=== PATIENT | female | born 1955 | race Caucasian/White ===

== ENCOUNTER 2016-10-21 07:29 | Inpatient (IN) | payer OTHER ==
[~2016-10-21] VITALS: Ht 167.6 cm; Wt 95.5 kg
--- NOTE | 2016-10-21 07:53 | EMERGENCY ROOM VISIT NOTE ---
History Report prepared by Romain: Codi Mcfarland Under the Supervision of: Dr. Tram Gipson M.D. First contact with patient: 07:37 Chief Complaint: STROKE SYMPTOMS Stated Complaint: STROKE SX HX: STROKES History of Present Illness The patient is a 61 year old female who presents to the Emergency Room with complaints of an episode of stroke-like symptoms beginning [employer]ACHINE [employer]. The patient states that she fell asleep around midnight last night while reading a book. She woke up at 6:15am and got up to go to the bathroom. She states that when she was walking to the bathroom her balance was "off." She was weaker on her left side. Her states that she was walking as if she were drunk. He also notes that she had very slurred speech, which has improved since arriving in the ED. The patient sat down on the toilet and reports that while she was sitting there, she had involuntary convulsions of the left arm and leg. These convulsions have resolved. She came to the ED for further evaluation. The patient is complaining of a headache that she rates as a 1/10 in severity. She started doxycycline two weeks ago for Lyme disease. She denies any other recent illness. The patient has had a previous stroke in 2002. She was on control at that time, and she no longer takes that medication. She is currently on Plavix. Source of History: patient, spouse/significant other Onset: PUNCH MACHINE OPERATOR Position: other (global) Symptom Intensity: 1/10 Quality: other (stroke-like symptoms) Timing: other (episode) Associated Symptoms: + headache Note: Pt was off balance and had slurred speech. Review of Systems See HPI for pertinent positives & negatives. A total of 10 systems reviewed and were otherwise negative. Past Medical & Surgical Medical Problems: (1) History of stroke Family History Cancer Social History Smoking Status: Never Smoker Marital Status: Housing Status: lives with significant other Current/Historical Medications Scheduled Aspirin (Aspirin), 325 MG PO DAILY Atorvastatin (Atorvastatin Calcium), 40 MG PO QAM Clopidogrel (Plavix), 75 MG PO DAILY Desvenlafaxine Succinate Er (Pristiq), 50 MG PO DAILY Doxycycline Hyclate (Doxycycline Hyclate), 100 MG PO BID Allergies Coded Allergies: No Known Allergies (Unverified , 10/21/16) Physical Exam Vital Signs Date Time Temp Pulse Resp B/P (MAP) Pulse Ox O2 Delivery O2 Flow Rate FiO2 10/21/16 11:50 95 Room Air 10/21/16 11:30 83 16 145/90 95 10/21/16 10:13 67 15 157/96 96 10/21/16 09:22 72 16 162/94 94 Room Air 10/21/16 08:26 62 10/21/16 08:16 99 Room Air 10/21/16 07:32 36.4 87 20 175/87 97 Room Air Physical Exam Vital signs reviewed. General: Well-appearing 61 year old female, in no significant distress. HEENT: No scleral icterus, PERRLA, neck supple. Atraumatic. Cardiovascular: Regular rate and rhythm, no extra sounds. Pulmonary: Clear to auscultation bilaterally, normal work of breathing. Abdomen: Soft, nontender, nondistended, positive bowel sounds. Musculoskeletal: Atraumatic, no peripheral edema. Neurologic: Patient awake alert and oriented x 3, full strength in all 4 extremities. Cranial nerves 2 through 12 grossly intact. No drift, finger to nose intact, heel to acevedo intact. Equal strength. Some dysarthria with more complicated sentences. Skin: Warm, dry, no rash Medical Decision & Procedures ER Provider Diagnostic Interpretation: Radiology results as stated below per my review and radiologist interpretation: HEAD WITHOUT CONTRAST (CT) CT DOSE: 537.48 mGy.cm HISTORY: Mental status change Stroke TECHNIQUE: Multiaxial CT images of the head were performed without the use of intravenous contrast. A dose lowering technique was utilized adhering to the principles of ALARA. Comparison: None. Findings: The paranasal sinuses and mastoid air cells are clear. Moderate frontal atrophy. Old left temporal infarct. Small old left parietal cortical infarct. No acute intracranial hemorrhage. No midline shift. Impression: Several old left cerebral infarct. Frontal atrophy. No acute intracranial abnormality. The above report was generated using voice recognition software. It may contain grammatical, syntax or spelling errors. Electronically signed by: Max Cooper M.D. 10/21/2016 8:16 AM Dictated Date/Time: 10/21/2016 8:14 AM CHEST ONE VIEW PORTABLE CLINICAL HISTORY: Stroke mental status change COMPARISON STUDY: No previous studies for comparison. FINDINGS: The bones soft tissues and hemidiaphragms are normal. The cardiomediastinal silhouette is normal. The lungs are clear. The pulmonary vasculature is normal. IMPRESSION: Negative chest. The above report was generated using voice recognition software. It may contain grammatical, syntax or spelling errors. Electronically signed by: Max Cooper M.D. 10/21/2016 10:38 AM Dictated Date/Time: 10/21/2016 10:[address] ANGIOGRAM OF THE NECK CLINICAL HISTORY: Stroke. COMPARISON STUDY: No priors. TECHNIQUE: Following the IV administration of 120 of Optiray 320, CT angiogram of the neck was performed from the aortic arch to the skull base. Images are reviewed in the axial, sagittal, and coronal planes. 3-D MIPS images are created and assessed. IV contrast was administered without complication. All measurements were calculated based on NASCET criteria. A dose lowering technique was utilized adhering to the principles of ALARA. CT DOSE: 628.47 mGy.cm FINDINGS: Thoracic aorta: Visualized portions of the thoracic aorta are normal in caliber. The aortic arch demonstrates 4-vessel variant anatomy. Subclavian arteries: Widely patent bilaterally. Right carotid arterial system: The right common carotid artery is widely patent, as are the right internal and external carotid arteries. Left carotid arterial system: The left common carotid artery is widely patent, as are the left internal and external carotid arteries. The mid to distal left internal carotid artery demonstrates a beaded appearance suggesting fibromuscular dysplasia. This is best seen on coronal MIP image #23. The distal left internal carotid artery is tortuous. Vertebral arteries: The vertebral arteries are widely patent bilaterally. The right vertebral artery is dominant. Intracranial vasculature: The internal carotid arteries and vertebral arteries at the skull base are widely patent. See report of CT angiogram of the brain performed concurrently for detailed intracranial findings. Jugular veins: Widely patent bilaterally. Brain parenchyma: Encephalomalacia from a remote left MCA territory infarct is partially visualized. Lung apices: Partially visualized upper lobe lung parenchyma appears clear. Soft tissues: The visualized pharyngeal soft tissues are normal in appearance noting angiographic phase technique. The oropharyngeal airway appears widely patent. The salivary and thyroid glands are normal in appearance. No cervical lymphadenopathy is seen. Skeletal structures: Skeletal structures are osteopenic. The visualized calvarium at the skull base and the cervical spine appear intact. Mild cervical spondylosis is observed. The visualized paranasal sinuses and mastoid air cells are clear. IMPRESSION: 1. The carotid arteries intervertebral arteries are widely patent. 2. There is a beaded appearance of the mid to distal left internal carotid artery typical in appearance for fibromuscular dysplasia. Electronically signed by: Long Shields M.D. 10/21/2016 10:08 AM Dictated Date/Time: 10/21/2016 9:56 AM HEAD ANGIO WITH CONTRAST CLINICAL HISTORY: Change in mental status syncope TECHNIQUE: Transaxial acquisition with multi axial reformatted images COMPARISON STUDY: None FINDINGS: Mild atherosclerotic change throughout the anterior middle and posterior cerebral circulation. High degree of stenotic change is not seen. No evidence for aneurysmal distention. IMPRESSION: 1. Mild scattered atherosclerotic change and multifocal narrowing of all structures of the anterior middle and posterior cerebral circulation. 2. No evidence for a significant or severe stenotic process. The above report was generated using voice recognition software. It may contain grammatical, syntax or spelling errors. Electronically signed by: Max Cooper M.D. 10/21/2016 10:02 AM Dictated Date/Time: 10/21/2016 9:53 AM Laboratory Results Test 10/21/16 07:41 10/21/16 07:44 10/21/16 07:55 10/21/16 07:56 Bedside Prothrombin Time INR 1.0 (0.9-1.1) Bedside Glucose 97 mg/dl (70-90) Erythrocyte Sedimentation Rate 6 mm/hr (0-21) Prothrombin Time 10.0 SECONDS (9.0-12.0) Prothromb Time International Ratio 0.9 (0.9-1.1) Activated Partial Thromboplast Time 27.4 SECONDS (21.0-31.0) Partial Thromboplastin Ratio 1.1 Estimated Average Glucose 111 mg/dl Hemoglobin A1c 5.5 % (4.5-5.6) C-Reactive Protein < 0.29 mg/dl (0-0.29) Hepatitis C Antibody Screen NEG (NEG) Bedside Hemoglobin 14.6 g/dl (12.0-16.0) Bedside Hematocrit 43 % (37-47) Bedside Sodium 141 mEq/L (135-144) Bedside Potassium 4.1 mEq/L (3.3-5.0) Bedside Chloride 104 mEq/L (101-112) Bedside Total CO2 26 mEq/l (24-31) Bedside Blood Urea Nitrogen 24 mg/dl (7-18) Bedside Creatinine 0.8 mg/dl (0.6-1.3) Bedside Glucose (other) 111 mg/dl (70-99) Bedside Ionized Calcium (Rob) 1.14 mmol/l (1.12-1.32) Laboratory results per my review. Medications Administered Medications (Trade) Dose Ordered Sig/Jamie Route Start Time Stop Time Status Last Admin Dose Admin Sodium Chloride 1,000 ml @ 100 mls/hr Q10H IV 10/21/16 07:39 10/21/16 13:03 DC 10/21/16 12:54 100 MLS/HR Ondansetron HCl (Zofran Inj) 4 mg NOW STAT IV 10/21/16 08:41 10/21/16 08:42 DC 10/21/16 08:47 4 MG Meclizine HCl (Antivert Tab) 25 mg NOW STAT PO 10/21/16 08:44 10/21/16 08:45 DC 10/21/16 10:12 25 MG Promethazine HCl 12.5 mg/Sodium Chloride 50.5 ml @ 204 mls/hr NOW STAT IV 10/21/16 08:57 10/21/16 09:11 DC 10/21/16 09:20 204 MLS/HR ECG Indication: weakness Rate (beats per minute): 61 Rhythm: normal sinus Findings: no acute ischemic change, no ectopy ED Course 0737: Past medical records reviewed. The patient was evaluated in room A3. A complete history and physical examination was performed. 0739: NSS 1000 ml @ 100 mls/hr IV 0840: The nursing staff called to alert me that the patient is nauseated and vomited. 0841: Zofran 4 mg IV 0843: I reassessed the patient. She is still nauseated and complaining of dizziness that worsens when she closes her eyes. 0844: Antivert Tab 25 mg PO 0850: A stroke-alert was called in the ED. 0856: I spoke with Dr. Neri of [place] [facility]. We discussed the patient 's case and she will evaluate the patient via Tele-stroke. 0857: Promethazine HCl 12.5 mg/Sodium Chloride 50.5 ml @ 204 mls/hr IV 0921: I discussed the case with Dr. Neri again and she recommended a CTA head and neck. 1105: Once again I spoke with Dr. Neri regarding the patient's results and treatment plan. She recommended that the patient remain in the hospital for further management. She does not need to be transferred. 1109: I reassessed the patient at this time. She is feeling better and resting comfortably. I discussed the results and treatment plan with the patient and her . I answered all pertaining questions that they had. They expressed understanding and verbalized agreement. 1114: I spoke with Dr. Angela. We discussed the patient's results and treatment plan. The patient will be evaluated by the [facility] for further management. Medical Decision Differential diagnosis: Etiologies such as metabolic, infection, hypo/hyperglycemia, electrolyte abnormalities, cardiac sources, intracerebral event, toxicologic, neurologic, as well as others were entertained. This patient was evaluated and appeared to be in no significant distress. IV access was obtained and laboratory work was drawn. Patient was placed on radiation monitor and found to be in a normal sinus rhythm. EKG reveals no evidence of acute ischemia. Physical exam is fairly unrevealing with the exception of some mild dysarthria. CT scan of the head reveals evidence of old infarct. A stroke consult was placed, Dr. Salcido of neurology evaluated the patient. She has recommended a CT angiogram of head and neck. This study is read as above, vascular abnormalities identified without acute occlusive disease. I did speak with Dr. Salcido once again. She has recommended medical management. She has recommended follow-up MRA for confirmation of the fibromuscular disease noted on CTA. The hospitalist service was contacted. They will evaluate the patient for further management. She is aware of the plan and agrees. Medication Reconcilliation Current Medication List: was personally reviewed by me Blood Pressure Screening Patient's blood pressure: Elevated blood pressure Blood pressure disposition: Elevated BP felt to be situational Consults Time Called: 0854 Consulting Physician: Dr. Neri Returned Call: [address] Neri of [place] [facility]. We discussed the patient's case and she will evaluate the patient via Tele-stroke. Additional Consults: Time Called: 918 Consulted Physician: Dr. Neri Returned Call: 09 Additional Comments: I discussed the case with Dr. Neri again and she recommended a CTA head and neck. Time Called: 110 Consulted Physician: Dr. Neri Returned Call: [phone] Additional Comments: Once again I spoke with Dr. Neri regarding the patient's results and treatment plan. She recommended that the patient remain in the hospital for further management. She does not need to be transferred. Impression Primary Impression: Stroke Scribe Attestation The scribe's documentation has been prepared under my direction and personally reviewed by me in its entirety. I confirm that the note above accurately reflects all work, treatment, procedures, and medical decision making performed by me. Departure Information Dispostion Being Evaluated By Hospitalist Prescriptions Atorvastatin (Atorvastatin Calcium) 40 Mg Tab 40 MG PO QAM, #30 TAB 2 Refills Prov: Kleber Joshi MD 10/23/16 Referrals Sumeet Echevarria M.D. (PCP) Patient Instructions My [facility] [address] Stroke History Time Last Known Well midnight last night Stroke t-PA Criteria Reviewed Does NOT meet criteria for t-PA Reason t-PA Not Given Treatment not indicated Problem Qualifiers Primary Impression: Stroke CVA mechanism: unspecified Qualified Codes: I63.9 - Cerebral infarction, unspecified
[2016-10-21 08:08] LABS: BASO % 0.4 %; BASO ABS # 0.03 K/uL (0-0.2); COMPLETE YES; EOS % 3.3 %; HEMATOCRIT 43.5 % (37-47); IG% 0.1 %; LYMPH % 28.7 %; LYMPH ABS # 2.38 K/uL (1.2-3.4); MEAN CELL VOLUME 95.4 fL (80-100); MEAN CORPUSCULAR HEMOGLOBIN 32.7 pg (25-34); MEAN CORPUSCULAR HGB CONC 34.3 g/dl (32-36); MEAN PLATELET VOLUME 9.4 fL (7.4-10.4); MONO % 6.3 %; NEUT % 61.2 %; PLATELET COUNT 266 K/uL (130-400); RED BLOOD COUNT 4.56 M/uL (4.2-5.4)
[2016-10-21 08:10] LABS: ISTAT CREATININE 0.8 mg/dl (0.6-1.3); ISTAT HEMOGLOBIN 14.6 g/dl (12.0-16.0); ISTAT IONIZED CALCIUM 1.14 mmol/l (1.12-1.32)
[2016-10-21] MEDS: SODIUM CHLORIDE 0.9% 1000ML 1,000 ML IV SCH ×2 (08:15→12:54)
[2016-10-21 08:16] LABS: INR 0.9 (0.9-1.1); PARTIAL THROMBOPLASTIN RATIO 1.1
--- NOTE | 2016-10-21 08:18 | DIAGNOSTIC IMAGING REPORT ---
HEAD WITHOUT CONTRAST (CT) CT DOSE: 537.48 mGy.cm HISTORY: Mental status change Stroke TECHNIQUE: Multiaxial CT images of the head were performed without the use of intravenous contrast. A dose lowering technique was utilized adhering to the principles of ALARA. Comparison: None. Findings: The paranasal sinuses and mastoid air cells are clear. Moderate frontal atrophy. Old left temporal infarct. Small old left parietal cortical infarct. No acute intracranial hemorrhage. No midline shift. Impression: Several old left cerebral infarct. Frontal atrophy. No acute intracranial abnormality. The above report was generated using voice recognition software. It may contain grammatical, syntax or spelling errors. Electronically signed by: Max Cooper M.D. 10/21/2016 8:16 AM Dictated Date/Time: 10/21/2016 8:14 AM
[2016-10-21 08:25] LABS: BLOOD UREA NITROGEN 24 mg/dl (7-18); BUN/CREATININE RATIO 29.9 (10-20); CALCIUM 8.8 mg/dl (8.5-10.1); CARBON DIOXIDE 30 mmol/L (21-32); CHLORIDE 109 mmol/L (98-107); CREATININE 0.81 mg/dl (0.60-1.20); GLUCOSE 112 mg/dl (70-99); POTASSIUM 4.1 mmol/L (3.5-5.1); SODIUM 142 mmol/L (136-145)
[2016-10-21 08:30] LABS: CKMB/CK RATIO 8.2 (0-3.0)
[2016-10-21] MEDS ORDERED: ONDANSETRON INJ 2 MG/ML 2 ML VIAL IV STA (08:41)
[2016-10-21] MEDS ORDERED: MECLIZINE HCL 25 MG TAB PO STA (08:44)
[2016-10-21] MEDS ORDERED: PROMETHAZINE HCL INJ 12.5 MG in SODIUM CHLORIDE 0.9% 50ML 50 ML IV STA (08:57)
[2016-10-21] MEDS ORDERED: OPTIRAY 320 IV PRN (09:30)
[2016-10-21] MEDS ORDERED: CLOP1TAB15 PO (09:50)
[2016-10-21] MEDS ORDERED: SIMV10TA2 PO (09:50)
[2016-10-21] MEDS ORDERED: ASPI325T45 PO (09:50)
[2016-10-21] MEDS ORDERED: DXY/100 PO (09:50)
[2016-10-21] MEDS ORDERED: DESV50TA PO (09:50)
--- NOTE | 2016-10-21 10:03 | DIAGNOSTIC IMAGING REPORT ---
HEAD ANGIO WITH CONTRAST CLINICAL HISTORY: Change in mental status syncope TECHNIQUE: Transaxial acquisition with multi axial reformatted images COMPARISON STUDY: None FINDINGS: Mild atherosclerotic change throughout the anterior middle and posterior cerebral circulation. High degree of stenotic change is not seen. No evidence for aneurysmal distention. IMPRESSION: 1. Mild scattered atherosclerotic change and multifocal narrowing of all structures of the anterior middle and posterior cerebral circulation. 2. No evidence for a significant or severe stenotic process. The above report was generated using voice recognition software. It may contain grammatical, syntax or spelling errors. Electronically signed by: Max Cooper M.D. 10/21/2016 10:02 AM Dictated Date/Time: 10/21/2016 9:53 AM
--- NOTE | 2016-10-21 10:09 | DIAGNOSTIC IMAGING REPORT ---
CT ANGIOGRAM OF THE NECK CLINICAL HISTORY: Stroke. COMPARISON STUDY: No priors. TECHNIQUE: Following the IV administration of 120 of Optiray 320, CT angiogram of the neck was performed from the aortic arch to the skull base. Images are reviewed in the axial, sagittal, and coronal planes. 3-D MIPS images are created and assessed. IV contrast was administered without complication. All measurements were calculated based on NASCET criteria. A dose lowering technique was utilized adhering to the principles of ALARA. CT DOSE: 628.47 mGy.cm FINDINGS: Thoracic aorta: Visualized portions of the thoracic aorta are normal in caliber. The aortic arch demonstrates 4-vessel variant anatomy. Subclavian arteries: Widely patent bilaterally. Right carotid arterial system: The right common carotid artery is widely patent, as are the right internal and external carotid arteries. Left carotid arterial system: The left common carotid artery is widely patent, as are the left internal and external carotid arteries. The mid to distal left internal carotid artery demonstrates a beaded appearance suggesting fibromuscular dysplasia. This is best seen on coronal MIP image #23. The distal left internal carotid artery is tortuous. Vertebral arteries: The vertebral arteries are widely patent bilaterally. The right vertebral artery is dominant. Intracranial vasculature: The internal carotid arteries and vertebral arteries at the skull base are widely patent. See report of CT angiogram of the brain performed concurrently for detailed intracranial findings. Jugular veins: Widely patent bilaterally. Brain parenchyma: Encephalomalacia from a remote left MCA territory infarct is partially visualized. Lung apices: Partially visualized upper lobe lung parenchyma appears clear. Soft tissues: The visualized pharyngeal soft tissues are normal in appearance noting angiographic phase technique. The oropharyngeal airway appears widely patent. The salivary and thyroid glands are normal in appearance. No cervical lymphadenopathy is seen. Skeletal structures: Skeletal structures are osteopenic. The visualized calvarium at the skull base and the cervical spine appear intact. Mild cervical spondylosis is observed. The visualized paranasal sinuses and mastoid air cells are clear. IMPRESSION: 1. The carotid arteries intervertebral arteries are widely patent. 2. There is a beaded appearance of the mid to distal left internal carotid artery typical in appearance for fibromuscular dysplasia. Electronically signed by: Long Shields M.D. 10/21/2016 10:08 AM Dictated Date/Time: 10/21/2016 9:56 AM
--- NOTE | 2016-10-21 10:39 | DIAGNOSTIC IMAGING REPORT ---
CHEST ONE VIEW PORTABLE CLINICAL HISTORY: Stroke mental status change COMPARISON STUDY: No previous studies for comparison. FINDINGS: The bones soft tissues and hemidiaphragms are normal. The cardiomediastinal silhouette is normal. The lungs are clear. The pulmonary vasculature is normal. IMPRESSION: Negative chest. The above report was generated using voice recognition software. It may contain grammatical, syntax or spelling errors. Electronically signed by: Max Cooper M.D. 10/21/2016 10:38 AM Dictated Date/Time: 10/21/2016 10:37 AM
[2016-10-21 11:50] VITALS: O2SAT 95; Ht 167.6 cm; Wt 95.5 kg
[2016-10-21] MEDS ORDERED: ACETAMINOPHEN 325 MG TAB PO PRN (12:00)
[2016-10-21] MEDS ORDERED: ONDANSETRON INJ 2 MG/ML 2 ML VIAL IV PRN (12:00)
[2016-10-21] MEDS ORDERED: POLYETHYLENE (MIRALAX) 17 GM PACK PO PRN (12:00)
[2016-10-21] MEDS ORDERED: PHARMACIST DISCHARGE MED REC CONSULT PRN (12:00)
--- NOTE | 2016-10-21 12:07 | History and Physical ---
History & Physical Date & Time of Service: Oct 21, 2016 at 12:02 Chief Complaint: Stroke Sx Hx: Strokes Primary Care Physician: Sumeet Echevarria M.D. History of Present Illness Source: patient, hospital records Patient is a 61 yo female who presented to the ED after experiencing symptoms of slurred speech, unsteady gait, and uncontrollable shaking of her left side extremities this AM. She states she woke up this morning around 6AM, and upon walking to the bathroom she felt unsteady as if she was "drugged" and when she sat to urinate, she began to have involuntary shaking of her left side. She called for her who helped her finish up and walk back to the bedroom. The shaking had stopped spontaneously. Her noticed her speech is slurred and was not previously that way. She denies any other symptoms until she came to the ER, where she now has a headache and feels some dizziness with walking. She states she has been in good health until today. Last week she had a rash on her thigh and was seen at urgent care where they thought it could be lyme disease and have been treating her with doxycycline since 10/12, no lab testing was done and the patient never saw a tick. Patient reports taking her medications without missing doses. She denies any other complaints at this time. She has a prior hx of stroke in 2002 when she was on OCP and had residual fine motor difficulty in her right side extremities and a slight right facial droop. Past Medical/Surgical History Medical Problems: (1) History of stroke in 2002 (2) Dyslipidemia Surgical History: cholecystectomy hysterectomy colonoscopy Family History Cancer Social History Smoking Status: Never Smoker Marital Status: Housing status: lives with family Immunizations History of Influenza Vaccine: No (patient refuses) History of Pneumococcal: No (patient refuses) Multi-Drug Resistant Organisms History of MDRO: No Allergies Coded Allergies: No Known Allergies (Unverified , 10/21/16) Home Medications Scheduled Aspirin (Aspirin), 325 MG PO DAILY Clopidogrel (Plavix), 75 MG PO DAILY Desvenlafaxine Succinate Er (Pristiq), 50 MG PO DAILY Doxycycline Hyclate (Doxycycline Hyclate), 100 MG PO BID Simvastatin (Zocor), 10 MG PO QPM Review of Systems Constitutional: No fever, No chills, No sweats, No weight loss, No weakness Eyes: No worsening of vision, No redness, No diplopia, No problem reported ENT: No hearing loss, No nasal symptoms, No sore throat, No trouble swallowing Respiratory: No cough, No sputum, No wheezing, No shortness of breath Cardiovascular: + edema, No chest pain, No claudication, No palpitations Abdomen: No pain, No nausea, No vomiting, No diarrhea Musculoskeletal: No joint pain, No muscle pain, No swelling, No problem reported Genitourinary - Female: No dysuria, No urinary frequency, No urinary urgency, No urinary incontinence Neurologic: + weakness, + balance problems, No memory loss, No paralysis, No numbness/tingling Psychiatric: + depression symptoms, No anxiety, No substance abuse Endocrine: No problem reported Hematologic / Lymphatic: No abnormal bleeding/bruising, No clotting problems, No problem reported Integumentary: No rash, No itch Physical Exam Vital Signs Date Time Temp Pulse Resp B/P (MAP) Pulse Ox O2 Delivery O2 Flow Rate FiO2 10/21/16 11:50 95 Room Air 10/21/16 11:30 83 16 145/90 95 10/21/16 10:13 67 15 157/96 96 10/21/16 09:22 72 16 162/94 94 Room Air 10/21/16 08:26 62 10/21/16 08:16 99 Room Air 10/21/16 07:32 36.4 87 20 175/87 97 Room Air General Appearance: WD/WN, no apparent distress Head: normocephalic, atraumatic Eyes: PERRL, EOMI, sclerae normal, + pertinent finding (slight lateral nystagmus with extreme left side glance ) ENT: hearing grossly normal Neck: supple, no JVD, no carotid bruits, trachea midline Respiratory/Chest: chest non-tender, lungs clear, normal breath sounds, no respiratory distress Cardiovascular: regular rate, rhythm, no gallop, no JVD, no murmur Abdomen/GI: normal bowel sounds, non tender, soft, no organomegaly Back: no CVA tenderness, normal range of motion Extremities/Musculoskelatal: normal capillary refill, normal range of motion, + pedal edema Neurologic/Psych: road passenger firer II-XII nml as tested, no motor/sensory deficits, alert, oriented x 3 Skin: normal color, warm/dry, no rash Diagnostics Laboratory Results Results Past 24 Hours Test 10/21/16 07:41 10/21/16 07:44 10/21/16 07:55 10/21/16 07:56 Range/Units Bedside Prothrombin Time INR 1.0 0.9-1.1 Bedside Glucose 97 70-90 mg/dl White Blood Count 8.30 4.8-10.8 K/uL Red Blood Count 4.56 4.2-5.4 M/uL Hemoglobin 14.9 12.0-16.0 g/dL Hematocrit 43.5 37-47 % Mean Corpuscular Volume 95.4 80-100 fL Mean Corpuscular Hemoglobin 32.7 25-34 pg Mean Corpuscular Hemoglobin Concent 34.3 32-36 g/dl Platelet Count 266 130-400 K/uL Mean Platelet Volume 9.4 7.4-10.4 fL Neutrophils (%) (Auto) 61.2 % Lymphocytes (%) (Auto) 28.7 % Monocytes (%) (Auto) 6.3 % Eosinophils (%) (Auto) 3.3 % Basophils (%) (Auto) 0.4 % Neutrophils # (Auto) 5.09 1.4-6.5 K/uL Lymphocytes # (Auto) 2.38 1.2-3.4 K/uL Monocytes # (Auto) 0.52 0.11-0.59 K/uL Eosinophils # (Auto) 0.27 0-0.5 K/uL Basophils # (Auto) 0.03 0-0.2 K/uL RDW Standard Deviation 45.2 36.4-46.3 fL RDW Coefficient of Variation 13.0 11.5-14.5 % Immature Granulocyte % (Auto) 0.1 % Immature Granulocyte # (Auto) 0.01 0.00-0.02 K/uL Erythrocyte Sedimentation Rate 6 0-21 mm/hr Prothrombin Time 10.0 9.0-12.0 SECONDS Prothromb Time International Ratio 0.9 0.9-1.1 Activated Partial Thromboplast Time 27.4 21.0-31.0 SECONDS Partial Thromboplastin Ratio 1.1 Sodium Level 142 136-145 mmol/L Potassium Level 4.1 3.5-5.1 mmol/L Chloride Level 109 98-107 mmol/L Carbon Dioxide Level 30 21-32 mmol/L Anion Gap 3.0 16.0 16-25 mmol/L Blood Urea Nitrogen 24 7-18 mg/dl Creatinine 0.81 0.60-1.20 mg/dl Est Creatinine Clear Calc Drug Dose 83.4 ml/min Estimated GFR () 89.6 Estimated GFR (Non- 77.3 BUN/Creatinine Ratio 29.9 10-20 Random Glucose 112 70-99 mg/dl Calcium Level 8.8 8.5-10.1 mg/dl Total Creatine Kinase 40 26-192 U/L Creatine Kinase MB 3.3 0.5-3.6 ng/ml Creatine Kinase MB Ratio 8.2 0-3.0 Troponin I < 0.015 0-0.045 ng/ml C-Reactive Protein < 0.29 0-0.29 mg/dl Bedside Hemoglobin 14.6 12.0-16.0 g/dl Bedside Hematocrit 43 37-47 % Bedside Sodium 141 135-144 mEq/L Bedside Potassium 4.1 3.3-5.0 mEq/L Bedside Chloride 104 101-112 mEq/L Bedside Total CO2 26 24-31 mEq/l Bedside Blood Urea Nitrogen 24 7-18 mg/dl Bedside Creatinine 0.8 0.6-1.3 mg/dl Bedside Glucose (other) 111 70-99 mg/dl Bedside Ionized Calcium (Rob) 1.14 1.12-1.32 mmol/l Test 10/21/16 11:51 10/21/16 11:59 Range/Units Impression Assessment and Plan POSSIBLE CVA/TIA: New onset slurred speech and gait ataxia -initial imaging: CT head: several old infarcts noted, and mention of frontal atrophy -will obtain MRI and MRA for further imaging, as CTA made mention of beaded appearance to left distal ICA and possibility of fibromuscular dysplasia -was previously on asa + plavix, consider switching to aggrenox after Neuro eval -Neuro consulted -TTE -monitor in tele -continue Neuro checks -VTE prophylaxis -PT/OT/ST consulted DYSLIPIDEMIA: -check lipid panel in AM -continue on statin LYME DISEASE: -unconfirmed, presence of erythema migrans previously -was started on doxycycline 10/12 which is to be continued Level of Care Telemetry Advanced Directives Existing Living Will: No Existing Power of Turn Supervisor: No Resuscitation Status FULL RESUSCITATION VTE Prophylaxis VTE Risk Assessment Done? Y/N: Yes Risk Level: Moderate Given or contraindicated: Enoxaparin (Lovenox)SQ
[2016-10-21 12:43] LABS: ESTIMATED AVERAGE GLUCOSE 111 mg/dl; HA1C FLAG Normal (Normal)
[2016-10-21 12:48] VITALS: BP 152/95; PULSE 68; O2SAT 94
--- NOTE | 2016-10-21 13:55 | Neurology Consultation ---
Neurology Consultation Date of Consultation: Oct 21, 2016. Attending Physician: Kleber Joshi MD Primary Care Physician: Sumeet Echevarria M.D. Reason for Consultation: new onset slurred speech, fibromuscular dysplasia History of Present Illness Source: patient, spouse Alley is a 61 yo female who has history of prior stroke in 2002 on plavix and aspirin, DL, HTN. She was brought to the ED after experiencing symptoms of slurred speech, unsteady gait, and uncontrollable shaking of her left side extremities this AM. She states she woke up this morning around 6AM, and upon walking to the bathroom she felt unsteady as if she was "drunk" and when she sat to urinate, she began to have involuntary shaking of her left side. She called for her who helped her finish up and walk back to the bedroom. The shaking had stopped spontaneously. Her noticed her speech is slurred and was not previously that way. She denies any other symptoms until she came to the ER, where she now has a headache and feels some dizziness with walking. She states she has been in good health until today. Last week she had a rash on her thigh and was seen at urgent care where they thought it could be lyme disease and have been treating her with doxycycline since 10/12, no lab testing was done and the patient never saw a tick. Patient reports taking her medications without missing doses. She has a prior hx of stroke in 2002 when she was on OCP and had residual fine motor difficulty in her right side extremities and a slight right facial droop. Denies PRATT, CP, SOB, abdominal pain , fever, chills night sweats. previous hysterectomy (due to a cyst) GB surgery. no family history of stroke or bleeding disorder. Past Medical/Surgical History Medical Problems: (1) Stroke Status: Acute Social History Smoking Status: Never smoker Smokeless Tobacco Use: No Alcohol Use: none Drug Use: none Marital Status: Housing Status: lives with significant other Allergies Coded Allergies: No Known Allergies (Unverified , 10/21/16) Current Inpatient Medications Current Inpatient Medications Medications (Trade) Dose Ordered Sig/Jamie Route Start Time Stop Time Status Last Admin Dose Admin Ioversol (Optiray 320) 125 ml UD PRN IV 10/21/16 09:30 10/25/16 09:29 Miscellaneous Information (Pharmacist Discharge Med Rec Consult) 1 ea UD PRN N/A 10/21/16 12:00 11/20/16 11:59 Enoxaparin Sodium (Lovenox Inj) 40 mg HS SC 10/21/16 21:00 11/20/16 20:59 Acetaminophen (Tylenol Tab) 650 mg Q4H PRN PO 10/21/16 12:00 11/20/16 11:59 Ondansetron HCl (Zofran Inj) 4 mg Q6H PRN IV 10/21/16 12:00 11/20/16 11:59 Polyethylene (Miralax Powder Packet) 17 gm DAILY PRN PO 10/21/16 12:00 11/20/16 11:59 Aspirin (Ecotrin Tab) 325 mg DAILY PO 10/22/16 09:00 11/21/16 08:59 Clopidogrel Bisulfate (plAVix TAB) 75 mg DAILY PO 10/22/16 09:00 11/21/16 08:59 Doxycycline Hyclate (Vibramycin Cap) 100 mg BID PO 10/21/16 21:00 11/02/16 20:59 Simvastatin (Zocor Tab) 10 mg QPM PO 10/21/16 21:00 11/20/16 20:59 Miscellaneous Information (Order Awaiting Action) 1 ea QS N/A 10/21/16 16:00 11/20/16 15:59 Pantoprazole Sodium (Protonix Tab) 40 mg QAM PO 10/22/16 09:00 11/21/16 08:59 Miscellaneous Information (Order Awaiting Action) 1 ea QS N/A 10/21/16 16:00 11/20/16 15:59 Physical Exam Vital Signs (Past 24 Hrs): Date Time Temp Pulse Resp B/P (MAP) Pulse Ox O2 Delivery O2 Flow Rate FiO2 10/21/16 12:48 68 16 152/95 (114) 94 Room Air 10/21/16 12:19 75 15 147/93 10/21/16 12:14 73 10/21/16 11:50 95 Room Air 10/21/16 11:30 83 16 145/90 95 10/21/16 10:13 67 15 157/96 96 10/21/16 09:22 72 16 162/94 94 Room Air 10/21/16 08:26 62 10/21/16 08:16 99 Room Air 10/21/16 07:32 36.4 87 20 175/87 97 Room Air Physical Exam: Constitutional: appearance nourished, healthy and obese Ears, Nose, Mouth and Throat: mucous membranes moist, no injection and skin normal, eyes normal Cardiovascular: normal S-1 and S-2 and regular rate and rhythm Respiratory: clear to auscultation (CTA) and no rales, rhonchi or wheeze Musculoskeletal: no peripheral edema and good distal pulses Skin: no stigmata of neurocutaneous disease noted and normal and intact Eyes: extraocular muscles intact (EOMI) and pupils equal, round and reactive to light (PERRL) NEUROLOGIC EXAMINATION: Mental status: Alert and interactive Oriented to full date and location Oriented to person Speech dysarthric and expressive and receptive aphasia (chronic) Cranial Nerves right sided facial droop (chronic) tongue midline Reflexes: Deep tendon reflexes were symmetrical and graded 2/5. Plantar responses were flexor. Sensory: sensory intact to vibration, cool touch Coordination: Romberg positive with eye open, finger to nose dysmetria on right Gait/Stance: Posture normal. Gait normal: unable to maintain balance with standing. Motor: Negative for pronator drift of out stretched arms with eyes closed. Strength: biceps triceps hand assorter laundry 5/5 bilaterally hip flex bilaterally 4/5, plantar flex ext bilaterally 5/5 Laboratory Results Past 24 Hours: 10/21/16 07:55 Red Blood Count 4.56, Mean Corpuscular Volume 95.4, Mean Corpuscular Hemoglobin 32.7, Mean Corpuscular Hemoglobin Concent 34.3, Mean Platelet Volume 9.4, Neutrophils (%) (Auto) 61.2, Lymphocytes (%) (Auto) 28.7, Monocytes (%) (Auto) 6.3, Eosinophils (%) (Auto) 3.3, Basophils (%) (Auto) 0.4, Neutrophils # (Auto) 5.09, Lymphocytes # (Auto) 2.38, Monocytes # (Auto) 0.52, Eosinophils # (Auto) 0.27, Basophils # (Auto) 0.03 10/21/16 07:55 Test 10/21/16 07:41 10/21/16 07:44 10/21/16 07:55 10/21/16 07:56 Bedside Prothrombin Time INR 1.0 (0.9-1.1) Bedside Glucose 97 mg/dl (70-90) White Blood Count 8.30 K/uL (4.8-10.8) Red Blood Count 4.56 M/uL (4.2-5.4) Hemoglobin 14.9 g/dL (12.0-16.0) Hematocrit 43.5 % (37-47) Mean Corpuscular Volume 95.4 fL (80-100) Mean Corpuscular Hemoglobin 32.7 pg (25-34) Mean Corpuscular Hemoglobin Concent 34.3 g/dl (32-36) Platelet Count 266 K/uL (130-400) Mean Platelet Volume 9.4 fL (7.4-10.4) Neutrophils (%) (Auto) 61.2 % Lymphocytes (%) (Auto) 28.7 % Monocytes (%) (Auto) 6.3 % Eosinophils (%) (Auto) 3.3 % Basophils (%) (Auto) 0.4 % Neutrophils # (Auto) 5.09 K/uL (1.4-6.5) Lymphocytes # (Auto) 2.38 K/uL (1.2-3.4) Monocytes # (Auto) 0.52 K/uL (0.11-0.59) Eosinophils # (Auto) 0.27 K/uL (0-0.5) Basophils # (Auto) 0.03 K/uL (0-0.2) RDW Standard Deviation 45.2 fL (36.4-46.3) RDW Coefficient of Variation 13.0 % (11.5-14.5) Immature Granulocyte % (Auto) 0.1 % Immature Granulocyte # (Auto) 0.01 K/uL (0.00-0.02) Erythrocyte Sedimentation Rate 6 mm/hr (0-21) Prothrombin Time 10.0 SECONDS (9.0-12.0) Prothromb Time International Ratio 0.9 (0.9-1.1) Activated Partial Thromboplast Time 27.4 SECONDS (21.0-31.0) Partial Thromboplastin Ratio 1.1 Est Creatinine Clear Calc Drug Dose 83.4 ml/min Estimated GFR () 89.6 Estimated GFR (Non- 77.3 BUN/Creatinine Ratio 29.9 (10-20) Estimated Average Glucose 111 mg/dl Hemoglobin A1c 5.5 % (4.5-5.6) Calcium Level 8.8 mg/dl (8.5-10.1) Total Creatine Kinase 40 U/L (26-192) Creatine Kinase MB 3.3 ng/ml (0.5-3.6) Creatine Kinase MB Ratio 8.2 (0-3.0) Troponin I < 0.015 ng/ml (0-0.045) C-Reactive Protein < 0.29 mg/dl (0-0.29) Bedside Hemoglobin 14.6 g/dl (12.0-16.0) Bedside Hematocrit 43 % (37-47) Bedside Sodium 141 mEq/L (135-144) Bedside Potassium 4.1 mEq/L (3.3-5.0) Bedside Chloride 104 mEq/L (101-112) Bedside Total CO2 26 mEq/l (24-31) Anion Gap 16.0 mmol/L (16-25) Bedside Blood Urea Nitrogen 24 mg/dl (7-18) Bedside Creatinine 0.8 mg/dl (0.6-1.3) Bedside Glucose (other) 111 mg/dl (70-99) Bedside Ionized Calcium (Rob) 1.14 mmol/l (1.12-1.32) Imaging CT head- Several old left cerebral infarct. Frontal atrophy. No acute intracranial abnormality. CTA neck- . The carotid arteries intervertebral arteries are widely patent. There is a beaded appearance of the mid to distal left internal carotid artery typical in appearance for fibromuscular dysplasia. CTA head- Mild scattered atherosclerotic change and multifocal narrowing of all structures of the anterior middle and posterior cerebral circulation. No evidence for a significant or severe stenotic process. Impression 61 year old female hx right sided stroke acute left sided stroke Plan 1. plavix 75 mg aspirin 81 mg increase aspirin to 162 mg daily 2. LDL <70, HTN control after initial stroke protocol of permissive hypertensive 3. MRI combo pending 4. coag work up ordered 5. TTE -cardiac issues 6. PT/OT speech for discharge needs 7. 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 I will see tomorrow after noon Sudhir Thomas MD
[2016-10-21 16:14] LABS: URINE APPEARANCE CLEAR (CLEAR); URINE BILIRUBIN NEG (NEG); URINE COLOR YELLOW; URINE EPITHELIAL CELL AUTO 20-30 /lpf (0-5); URINE NITRITE NEG (NEG); URINE SPECIFIC GRAVITY 1.017 (1.000-1.030); UROBILINOGEN NEG (NEG); ZZUR CULT IF INDIC CLEAN CATCH NO
[2016-10-21 16:16] LABS: MANUAL MICROSCOPIC REQUIRED? NO; REVIEW REQ? NO
--- NOTE | 2016-10-21 16:54 | DIAGNOSTIC IMAGING REPORT ---
MR ANGIOGRAPHY OF THE [place] NO CONTRAST CLINICAL HISTORY: Stroke. Slurred speech. Balance difficulty. COMPARISON STUDY: CT angiography of the head dated 10/21/2016 A 3-D [id number] MR angiographic sequence of the [place] was performed. Both the source and projection images were reviewed. There is an old left middle cerebral artery territory infarct. There is diminished vascularity in the area of prior infarction. There are no lesion suspicious for aneurysm. IMPRESSION: 1. No evidence of aneurysm 2. Diminished vascularity corresponding to an area of prior infarction in the distribution of the left middle cerebral artery Electronically signed by: Jared Miller M.D. 10/21/2016 4:53 PM Dictated Date/Time: 10/21/2016 4:50 PM
--- NOTE | 2016-10-21 17:33 | DIAGNOSTIC IMAGING REPORT ---
Brain MRI WITH AND WITHOUT CONTRAST HISTORY: Slurred speech. Ataxia. TECHNIQUE: Multiplanar multisequence MRI of the brain was performed both before and after the intravenous administration of contrast. COMPARISON STUDY: Brain MRA 10/21/2016. Head CT 10/21/2016. FINDINGS: There are total of 3 focal areas of restricted diffusion within the left cerebellar hemisphere with the largest measuring 1.3 cm. These are consistent with small infarcts. The midline structures are intact. Paranasal sinuses and the right mastoid air cells are clear. There are few partially opacified left mastoid air cells. The major vascular flow-voids at the skull base are well-maintained. There is encephalomalacia seen within the left frontal/temporal region and left parietal lobe consistent with areas of old MCA territory infarct. This remains unchanged. Mild focal areas of edema within the left cerebellar hemisphere at the site of infarct. Mild age-related involutional changes. Small amount of T2 signal surrounding the old left MCA territory infarcts consistent with gliosis. There is no mass, hematoma, or midline shift. No abnormal enhancement. IMPRESSION: 1. A few small acute infarcts within the left cerebellar hemisphere. 2. Old left MCA territory infarcts. Electronically signed by: Srini Mccracken M.D. 10/21/2016 5:32 PM Dictated Date/Time: 10/21/2016 5:22 PM
[2016-10-21 19:19] LABS: CKMB/CK RATIO 7.5 (0-3.0)
[2016-10-21 20:10] VITALS: BP 133/92; PULSE 77; TEMP 36.7; O2SAT 97
[2016-10-21] MEDS: ENOXAPARIN 40 MG/0.4 ML SYR SC SCH (20:42)
[2016-10-21] MEDS: DOXYCYCLINE HYCLATE 100 MG CAP PO SCH (20:43)
[2016-10-21] MEDS ORDERED: DOXYCYCLINE HYCLATE 100 MG CAP PO SCH (21:00)
[2016-10-21] MEDS ORDERED: SIMVASTATIN 10 MG TAB PO SCH (21:00)
[2016-10-22 00:18] VITALS: BP 129/76; PULSE 66; TEMP 37.1; O2SAT 96
[2016-10-22 02:37] LABS: CKMB/CK RATIO 5.2 (0-3.0)
[2016-10-22 04:53] VITALS: BP 160/88; PULSE 70; TEMP 37; O2SAT 98
[2016-10-22 06:45] LABS: BASO % 0.1 %; BASO ABS # 0.01 K/uL (0-0.2); COMPLETE YES; EOS % 1.9 %; HEMATOCRIT 43.7 % (37-47); IG% 0.2 %; LYMPH % 29.5 %; LYMPH ABS # 3.01 K/uL (1.2-3.4); MEAN CELL VOLUME 96.9 fL (80-100); MEAN CORPUSCULAR HEMOGLOBIN 32.2 pg (25-34); MEAN CORPUSCULAR HGB CONC 33.2 g/dl (32-36); MEAN PLATELET VOLUME 9.4 fL (7.4-10.4); MONO % 6.7 %; NEUT % 61.6 %; PLATELET COUNT 264 K/uL (130-400); RED BLOOD COUNT 4.51 M/uL (4.2-5.4); WHITE BLOOD COUNT 10.22 K/uL (4.8-10.8)
[2016-10-22 07:26] LABS: BUN/CREATININE RATIO 18.1 (10-20); CALCIUM 8.9 mg/dl (8.5-10.1); CHOLESTEROL/HDL RATIO 4.4; CREATININE 0.88 mg/dl (0.60-1.20); POTASSIUM 4.5 mmol/L (3.5-5.1)
[2016-10-22 08:05] VITALS: BP 146/89; PULSE 71; TEMP 36.9; O2SAT 97
[2016-10-22] MEDS: CLOPIDOGREL BISULFATE 75 MG TAB PO SCH (08:07)
[2016-10-22] MEDS: PANTOprazole SOD 40 MG TAB PO SCH (08:07)
[2016-10-22] MEDS: ASPIRIN 325 MG ECTAB PO SCH (08:07)
[2016-10-22] MEDS: DOXYCYCLINE HYCLATE 100 MG CAP PO SCH ×2 (09:56→21:19)
[2016-10-22 11:30] VITALS: BP 148/89; PULSE 71; TEMP 36.7; O2SAT 97
--- NOTE | 2016-10-22 12:21 | ECHOCARDIOGRAM REPORT ---
*NOTICE TO RECEIVING DEMOCRAT AGENCY This information is strictly Confidential and protected under [place] law. [place] law prohibits you from making any further disclosure of this information unless further disclosure is expressly permitted by the written consent of the person to whom it pertains or is authorized by law. A general authorization for the release of medical or other information is not sufficient for this purpose. Hospital accepts no responsibility if the information is made available to any other person, INCLUDING THE PATIENT. Interpretation Summary * Name: ONOFRE DIALLO Study Date: 10/22/2016 09:28 AM BP: 160/88 mmHg * Patient Location: .2E\S\E212\S\1 HR: 75 * : 1955 (M/d/yyyy) Gender: Female Height: 66 in * Age: 61 yrs Ethnicity: CA Weight: 213 lb * Ordering Physician: Minda Angela * Referring Physician: Self, Referred * Performed By: Vadim Varela RDCS * * Reason For Study: Cerebral ischemia/Embolus * BSA: 2.1 m2 * -- Conclusions -- * The left ventricle is normal in size. * Ejection Fraction = 60-65%. * The right ventricular systolic function is normal. * The left atrial size is normal. * Right atrial size is normal. * No significant valvular pathology. Procedure Details * A complete two-dimensional transthoracic echocardiogram was performed (2D, M-mode, Doppler and color flow Doppler). * The study was technically adequate. * A saline contrast injection was performed to assess for cardiac shunting. * The injection was performed through an intravenous line in the right arm. * The attending nurse who injected the saline contrast was OXANA Flaherty. * A total of 10 cc of agitated saline was given. Left Ventricle * The left ventricle is normal in size. * There is normal left ventricular wall thickness. * Ejection Fraction = 60-65%. * The left ventricular wall motion is normal. Right Ventricle * The right ventricle is normal size. * The right ventricular systolic function is normal. Atria * The left atrial size is normal. * Right atrial size is normal. * The interatrial septum is intact with no evidence for an atrial septal defect. Mitral Valve * The mitral valve anatomy is normal. * Significant mitral regurgitation is absent. Tricuspid Valve * The tricuspid valve anatomy is normal. * Significant tricuspid regurgitation is absent. Aortic Valve * The aortic valve is tricuspid. The leaflet thickness if normal. There is no aortic stenosis, and no significant insufficiency. * Aortic stenosis is absent. * There is no significant aortic regurgitation. Pulmonic Valve * The pulmonic valve is not well visualized. Great Vessels * The aortic root and proximal ascending aorta are normal sized. Pericardium/Pleural * There is no pericardial effusion. MMode 2D Measurements and Calculations IVSd 0.91 cm IVSs 1.3 cm LVIDd 4.4 cm LVIDs 2.2 cm LVPWd 0.77 cm LVPWs 1.2 cm IVS/LVPW 1.2 FS 49.5 % EDV(Teich) 88.3 ml ESV(Teich) 16.7 ml EF(Teich) 81.0 % EDV(cubed) 85.9 ml ESV(cubed) 11.1 ml EF(cubed) 87.1 % % IVS thick 41.9 % % LVPW thick 49.9 % LV mass(C)d 117.1 grams LV mass(C)dI 57.0 grams/m\S\2 LV mass(C)s 76.3 grams LV mass(C)sI 37.1 grams/m\S\2 SV(Teich) 71.5 ml SI(Teich) 34.8 ml/m\S\2 SV(cubed) 74.8 ml SI(cubed) 36.4 ml/m\S\2 EPSS 0.56 cm Ao root diam 3.0 cm Ao root area 7.2 cm\S\2 ACS 1.8 cm asc Aorta Diam 4.0 cm LVOT diam 1.9 cm LVOT area 2.9 cm\S\2 LVAd ap4 28.7 cm\S\2 LVLd ap4 8.4 cm EDV(MOD-sp4) 80.2 ml LVAs ap4 15.6 cm\S\2 LVLs ap4 6.8 cm ESV(MOD-sp4) 30.0 ml EF(MOD-sp4) 62.6 % LVAd ap2 24.9 cm\S\2 LVLd ap2 8.1 cm EDV(MOD-sp2) 62.9 ml LVAs ap2 14.5 cm\S\2 LVLs ap2 7.1 cm ESV(MOD-sp2) 25.5 ml EF(MOD-sp2) 59.5 % SV(MOD-sp4) 50.2 ml SI(MOD-sp4) 24.4 ml/m\S\2 SV(MOD-sp2) 37.4 ml SI(MOD-sp2) 18.2 ml/m\S\2 Doppler Measurements and Calculations MV E max vikki 83.7 cm/sec MV A max vikki 107.8 cm/sec MV E/A 0.78 MV dec time 0.25 sec Ao V2 max 178.6 cm/sec Ao max PG 12.8 mmHg Ao max PG (full) 5.9 mmHg HAL(V,A) 2.1 cm\S\2 HAL(V,D) 2.1 cm\S\2 LV V1 max PG 6.9 mmHg LV V1 max 131.3 cm/sec PA V2 max 123.8 cm/sec PA max PG 6.1 mmHg PA acc slope 734.9 cm/sec\S\2 PA acc time 0.14 sec PA pr(Accel) 15.6 mmHg
--- NOTE | 2016-10-22 14:24 | PROGRESS NOTE ---
DATE: 10/22/2016 DATE: 10/22/2016 Alley is much less dysarthric and the clumsiness and weakness in the left arm and leg are improved. PT and OT are seeing her and have suggested that she really is not afflicted to a sufficiently severe degree to require inpatient rehabilitation and that in-home therapy or outpatient therapy might be totally adequate. She continues to be on aspirin and Plavix but she has been on these for years. The angiographic study shows some minor low grade atheromatous disease. A 2D echo shows no potential source for cardiogenic emboli and no intraatrial shunting by bubble study. 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 In this setting then we have several options to explain the strokes which involve her cerebellum rather than her right hemisphere. I find this a little surprising, but certainly would explain some of her left-sided clumsiness and the dysarthria of speech. It would also explain the pure motor nature of this syndrome. At this point, then we either have had a series of embolic events from the aorta or perhaps paroxysmal atrial fibrillation or an underlying coagulopathy. At this point, I would continue on aspirin and Plavix. I would suggest she be discharged, perhaps tomorrow with a prescription for Aggrenox 225 mg twice a day as long as she has insurance coverage as if it is not the mcgraw could be prohibitive and I certainly could not justify switching from aspirin and Plavix which is apparently covered to a very expensive antiplatelet drug whose superiority to the aspirin and Plavix combination remains somewhat questionable and marginal at best. I think she is going to need an outpatient Zio patch or CardioNet monitoring and of course we will have to await the results of the hypercoagulability workup which can take several weeks. If she feels well enough to go home tomorrow she could be discharged to follow up with her primary care physician and to see neurology at [facility] in about 3-4 weeks. At that point we will have established whether or not the Aggrenox is covered and whether or not there is an underlying hypercoagulable state. If the latter is absent, which I suspect it may well be, then I will try to schedule an outpatient Zio patch or CardioNet monitoring. JESSEE
[2016-10-22 16:02] VITALS: BP 138/77; PULSE 77; TEMP 37; O2SAT 97
--- NOTE | 2016-10-22 17:25 | Progress Note ---
Internal Med Progress Note Date of Service: Oct 22, 2016. Provider Documentation: SUBJECTIVE: still has some dysarthria no swallowing issues no more weakness or shakiness afebrile eating fine no headaches or blurred vision. OBJECTIVE: Vital Signs-as noted below Exam: General-alert and oriented. Not in distress ENT-Normal hearing Neck-no neck masses supple Lungs-cta b/l no wheezing no crackles present Heart-s1 and s2 heard regular rate and rhythm no murmurs Abdomen-soft bowel sounds present non tender no distension Extremities- no erythema no edema Neuro-alert and oriented mild dysarthria power 5/5 in al extremities no pronator drift position sense intact Lab data as noted below. ASSESSMENT & PLAN: POSSIBLE CVA/TIA: New onset slurred speech and gait ataxia initial imaging: CT head: several old infarcts noted, and mention of frontal atrophy MRI head: A few small acute infarcts within the left cerebellar hemisphere Echo unremarkable except for mild dysarthria symptoms improved changed Zocor 10mg to Lipitor 40mg daily plan to change aspirin and Plavix to Aggrenox f/u hypercoagulable workup plan for zio monitor as out patient appreciate neurology inputs. DYSLIPIDEMIA: statin as above LYME DISEASE: unconfirmed, presence of erythema migrans previously started on doxycycline 10/12 which is to be continued DVT PROPHYLAXIS Lovenox DISPOSITION to be determined Vital Signs: Date Time Temp Pulse Resp B/P (MAP) Pulse Ox O2 Delivery O2 Flow Rate FiO2 10/22/16 16:02 37.0 77 20 138/77 (97) 97 Room Air 10/22/16 16:00 Room Air 10/22/16 12:00 Room Air 10/22/16 11:30 36.7 71 18 148/89 (108) 97 Room Air 10/22/16 08:05 36.9 71 146/89 (108) 97 Room Air 10/22/16 08:00 Room Air 10/22/16 04:53 37.0 70 18 160/88 (112) 98 Room Air 10/22/16 04:00 Room Air 10/22/16 00:18 37.1 66 18 129/76 (93) 96 Room Air 10/22/16 00:00 Room Air 10/21/16 20:10 36.7 77 18 133/92 (106) 97 Room Air 10/21/16 20:00 Room Air Lab Results: Results Past 24 Hours Test 10/21/16 18:30 10/22/16 02:01 10/22/16 06:26 Range/Units Total Creatine Kinase 32 33 26-192 U/L Creatine Kinase MB 2.4 1.7 0.5-3.6 ng/ml Creatine Kinase MB Ratio 7.5 5.2 0-3.0 Troponin I < 0.015 < 0.015 0-0.045 ng/ml White Blood Count 10.22 4.8-10.8 K/uL Red Blood Count 4.51 4.2-5.4 M/uL Hemoglobin 14.5 12.0-16.0 g/dL Hematocrit 43.7 37-47 % Mean Corpuscular Volume 96.9 80-100 fL Mean Corpuscular Hemoglobin 32.2 25-34 pg Mean Corpuscular Hemoglobin Concent 33.2 32-36 g/dl Platelet Count 264 130-400 K/uL Mean Platelet Volume 9.4 7.4-10.4 fL Neutrophils (%) (Auto) 61.6 % Lymphocytes (%) (Auto) 29.5 % Monocytes (%) (Auto) 6.7 % Eosinophils (%) (Auto) 1.9 % Basophils (%) (Auto) 0.1 % Neutrophils # (Auto) 6.31 1.4-6.5 K/uL Lymphocytes # (Auto) 3.01 1.2-3.4 K/uL Monocytes # (Auto) 0.68 0.11-0.59 K/uL Eosinophils # (Auto) 0.19 0-0.5 K/uL Basophils # (Auto) 0.01 0-0.2 K/uL RDW Standard Deviation 45.7 36.4-46.3 fL RDW Coefficient of Variation 13.0 11.5-14.5 % Immature Granulocyte % (Auto) 0.2 % Immature Granulocyte # (Auto) 0.02 0.00-0.02 K/uL Sodium Level 142 136-145 mmol/L Potassium Level 4.5 3.5-5.1 mmol/L Chloride Level 108 98-107 mmol/L Carbon Dioxide Level 31 21-32 mmol/L Anion Gap 3.0 3-11 mmol/L Blood Urea Nitrogen 16 7-18 mg/dl Creatinine 0.88 0.60-1.20 mg/dl Est Creatinine Clear Calc Drug Dose 76.1 ml/min Estimated GFR () 81.0 Estimated GFR (Non- 69.9 BUN/Creatinine Ratio 18.1 10-20 Random Glucose 100 70-99 mg/dl Calcium Level 8.9 8.5-10.1 mg/dl Triglycerides Level 169 0-150 mg/dl Cholesterol Level 157 0-200 mg/dl HDL Cholesterol 36 mg/dl LDL Cholesterol, Calculated 87 mg/dl VLDL Cholesterol, Calculated 34 mg/dl Cholesterol/HDL Ratio 4.4
[2016-10-22 19:55] VITALS: BP_SYST 159; BP_SYST 165; BP_DIAS 102; BP_DIAS 108; PULSE 73; TEMP 36.6; O2SAT 95
[2016-10-22] MEDS: ENOXAPARIN 40 MG/0.4 ML SYR SC SCH (21:19)
[2016-10-23 00:18] VITALS: BP 168/80; PULSE 60; TEMP 36.5; O2SAT 95
[2016-10-23 04:41] VITALS: BP 128/69; PULSE 66; TEMP 37.1; O2SAT 98
[2016-10-23 07:24] LABS: BASO % 0.2 %; BASO ABS # 0.02 K/uL (0-0.2); COMPLETE YES; EOS % 3.2 %; HEMATOCRIT 44.7 % (37-47); IG% 0.1 %; LYMPH % 32.4 %; LYMPH ABS # 2.82 K/uL (1.2-3.4); MEAN CELL VOLUME 96.5 fL (80-100); MEAN CORPUSCULAR HEMOGLOBIN 31.3 pg (25-34); MEAN CORPUSCULAR HGB CONC 32.4 g/dl (32-36); MEAN PLATELET VOLUME 9.6 fL (7.4-10.4); MONO % 7.5 %; NEUT % 56.6 %; PLATELET COUNT 254 K/uL (130-400); RED BLOOD COUNT 4.63 M/uL (4.2-5.4)
[2016-10-23 07:54] LABS: BUN/CREATININE RATIO 22.3 (10-20); CALCIUM 9.1 mg/dl (8.5-10.1); CREATININE 0.9 mg/dl (0.60-1.20); POTASSIUM 4.6 mmol/L (3.5-5.1)
[2016-10-23 07:57] VITALS: BP_SYST 150; BP_SYST 157; BP_DIAS 88; BP_DIAS 94; PULSE 67; TEMP 37; O2SAT 94
[2016-10-23] MEDS ORDERED: ATORVASTATIN 40 MG TAB PO SCH (09:00)
[2016-10-23] MEDS: CLOPIDOGREL BISULFATE 75 MG TAB PO SCH (09:12)
[2016-10-23] MEDS: DOXYCYCLINE HYCLATE 100 MG CAP PO SCH (09:12)
[2016-10-23] MEDS: PANTOprazole SOD 40 MG TAB PO SCH (09:12)
[2016-10-23] MEDS: ASPIRIN 325 MG ECTAB PO SCH (09:12)
[2016-10-23 13:56] VITALS: BP 137/95; PULSE 73; TEMP 37.4; O2SAT 96
--- NOTE | 2016-10-23 14:22 | PROGRESS NOTE ---
DATE: 10/23/2016 Alley looks a little better today. The speech is less dysarthric. She is a little less clumsy with her left hand and gait is just a slight bit off in terms of ataxia to the left. 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 Its causation was never established and at this point I think she is okay for discharge. I would continue her on her aspirin and Plavix and her prior doses until she establishes whether or not the Aggrenox at 225 mg twice a day will be compensated by her insurance. If it does not and the mcgraw of the drug is prohibitive, then I am simply going to suggest she continue the aspirin and the Plavix for now and we will reassess her in our office in about a month. That should provide sufficient time for the hypercoagulability workup to be complete. At that point I will probably schedule her to have a Zio patch or CardioNet monitor. She certainly has nothing on transthoracic echo to suggest a cardiogenic source of emboli including a lack of right to left shunt. On saline injection, I really do not see the need to go to a transesophageal echo here unless there are changes in the future. She has mild atheromatous disease in her intracranial vessels. The extracranial vessels are relatively unremarkable. Certainly, there is no clear source of emboli there. As noted in my prior consult, there are 3 possibilities here. 1. Would be a plaque from the aorta and the treatment of this would still be antiplatelet drugs. 2. Would be paroxysmal atrial fibrillation. 3. Would be hypercoagulable state Only the latter 2 might cause a change from antiplatelet therapy to anticoagulants. I would assume that pt and speech therapy will be arranged on an outpatient basis prior to discharge today [facility]
[2016-10-23] MEDS ORDERED: LPT40 PO (14:56)
--- NOTE | 2016-10-23 15:03 | Discharge Instructions ---
Discharge Instructions Date of Service Oct 23, 2016. Admission Reason for Admission: Stroke Discharge Discharge Diagnosis / Problem: CVA Discharge Goals Goal(s): Decrease discomfort, Improve function Activity Recommendations Activity Limitations: resume your previous activity . Instructions / Follow-Up Instructions / Follow-Up FOLLOWUP WITH FAMILY DOCTOR Sumeet Brown ON October AT 1:20PM. FOLLOWUP WITH NEUROLOGY IN 3-4 WEEKS( [address] [place] [address] ). HOLTER PER . CHNAGED SIMVASTATIN 10MG DAILY TO LIPITOR 40MG PO DAILY. FOLLOW LIPID PROFILE AND LIVER FUNCTION TEST IN ONE MONTH WITH FAMILY DOCTOR. OUT PATIENT PHYSICAL THERAPY AND SPEECH THERAPY. TO CHECK WITH INSURANCE IF IT COVERS AGGRENOX 200/25MG CAPSULE TWICE DAILY. IF IT COVERS THEN CHANGE ASPIRIN AND PLAVIX TO AGGRENOX. IF INSURANCE DOES NOT COVER AGGRENOX THEN CONTINUE ASPIRIN AND PLAVIX BEFORE. Risk Factors for Stroke: You can reduce your chances of stroke by working with your medical provider to adopt a healthy lifestyle. Some specific ways to lower your chance of stroke are: * If you are a smoker, now is the time to stop smoking cigarettes * If you are diabetic, improve the control of your blood sugars * Avoid excessive amounts of alcohol * Control high blood pressure * Lose weight if you are overweight * Be sure to lead an active lifestyle * Eat a healthy diet low in salt, cholesterol and fat You should know about other risk factors for stroke that you are unable to control. These include: * Age 55 years or older * Male gender * Certain racial groups: , or / * Family History of Stroke, Mini stroke or Heart Attack * Sickle Cell Disease Follow Up: It is important for you to keep your follow up appointments with your medical provider. Current Hospital Diet Patient's current hospital diet: AHA Diet (Heart Healthy) Discharge Diet Recommended Diet: AHA Diet (Heart Healthy) Pending Studies Studies pending at discharge: yes List of pending studies: HYPERCOAGUABLE WORK UP Laboratory Results Hemoglobin A1c Test 10/21/16 07:55 Range/Units Estimated Average Glucose 111 mg/dl Hemoglobin A1c 5.5 4.5-5.6 % Lipid Panel Test 10/22/16 06:26 Range/Units Triglycerides Level 169 H 0-150 mg/dl Cholesterol Level 157 0-200 mg/dl HDL Cholesterol 36 mg/dl Cholesterol/HDL Ratio 4.4 LDL Cholesterol, Calculated 87 mg/dl Medical Emergencies . Who to Call and When: Medical Emergencies: Call 911 immediately if you experience any of the following warning signs and symptoms of Stroke: * Sudden numbness or weakness of the face, arm or leg, especially on one side of the body * Sudden confusion, trouble speaking or understanding * Sudden trouble seeing in one or both eyes * Sudden trouble walking, dizziness, loss of balance or coordination * Sudden severe headache with no cause Do not delay calling 911 if you experience any warning signs or symptoms of a stroke. Delay in seeking medical attention may affect what treatments can be given to you. . Non-Emergent Contact Non-Emergency issues call your: Primary Care Provider . . "Provider Documentation" section prepared by Kleber Joshi. . Stroke Core Measures Reason no t-PA for Stroke: Treatment not indicated Reason no antithrom by day 2: Treatment provided - N/A Reason no antithrom at D/C: Treatment provided - N/A Reason no statin at D/C: Treatment provided - N/A Reason no anticoag w/a fib: Treatment not indicated VTE Core Measure Inpt VTE Proph given/why not?: Enoxaparin (Lovenox)SQ
[2016-10-23 15:54] VITALS: BP 133/88; PULSE 68; TEMP 37; O2SAT 98
--- NOTE | 2016-10-23 17:00 | Pharmacy Progress Note ---
Pharmacist Stroke Counseling Date of Service Oct 23, 2016. Scope Pharmacy has been consulted to provide medication discharge counseling for this patient admitted with CVA/stroke as per the Pharmacist Discharge Counseling for Stroke Patients Protocol. Medications on Discharge New Medications: Atorvastatin (Atorvastatin Calcium) 40 Mg Tab 40 MG PO QAM, #30 TAB 2 Refills Continued Medications: Aspirin (Aspirin) 325 Mg Tab 325 MG PO DAILY Clopidogrel (Plavix) 75 Mg Tab 75 MG PO DAILY Desvenlafaxine Succinate Er (Pristiq) 50 Mg Tab 50 MG PO DAILY Doxycycline Hyclate (Doxycycline Hyclate) 100 Mg Cap 100 MG PO BID X 21 DAYS (STARTED 10/12/16) Discontinued Medications: Simvastatin (Zocor) 10 Mg Tab 10 MG PO QPM Action The above medications, specifically ones for stroke treatment/prophylaxis, have been reviewed in detail with the patient and patient's spouse prior to discharge. This includes indication, common adverse reactions, drug interactions, and medication administration. Medication counseling has been employed using the teach-back method to ensure understanding. Outcome The patient has demonstrated understanding of the medications. Please note, they are aware that the pharmacist will call them within 72 hours post-discharge to confirm that the appropriate medications are being taken and answer any further medication related questions the patient might have at that time. Contact information Individual to be contacted: Alley or Roni Relationship to patient (if applicable): Patient / Phone number: [phone] Best time to call: 830-1000am on Wednesday 10/25 Thank you for allowing pharmacy to be involved in the care of this patient. Please call [phone] or [phone] with any additional questions
--- NOTE | 2016-10-23 18:42 | Progress Note ---
Internal Med Progress Note Date of Service: Oct 23, 2016. Provider Documentation: SUBJECTIVE: still has some mild dysarthria no swallowing issues ambulating fine but somewhat hesitant afebrile ok to go home today OBJECTIVE: Vital Signs-as noted below Exam: General-alert and oriented. Not in distress ENT-Normal hearing Neck-no neck masses supple Lungs-cta b/l no wheezing no crackles present Heart-s1 and s2 heard regular rate and rhythm no murmurs Abdomen-soft bowel sounds present non tender no distension Extremities- no erythema no edema Neuro-alert and oriented mild dysarthria power 5/5 in al extremities no pronator drift position sense intact Lab data as noted below. ASSESSMENT & PLAN: POSSIBLE CVA/TIA: New onset slurred speech and gait ataxia initial imaging: CT head: several old infarcts noted, and mention of frontal atrophy MRI head: A few small acute infarcts within the left cerebellar hemisphere Echo unremarkable except for mild dysarthria symptoms improved changed Zocor 10mg to Lipitor 40mg daily plan to change aspirin and Plavix to Aggrenox if insurance agrees f/u hypercoagulable workup with neurology plan for zio monitor as out patient by neurology once hypercoagulable workup available appreciate neurology inputs. DYSLIPIDEMIA: statin as above LYME DISEASE: unconfirmed, presence of erythema migrans previously started on doxycycline 10/12 which is to be continued Discharged home with out patient therapy Vital Signs: Date Time Temp Pulse Resp B/P (MAP) Pulse Ox O2 Delivery O2 Flow Rate FiO2 10/23/16 16:00 Room Air 10/23/16 15:54 37.0 68 18 98 Room Air 10/23/16 13:56 37.4 73 20 137/95 (109) 96 Room Air 10/23/16 08:00 Room Air 10/23/16 07:57 37.0 67 20 157/88 (111) 94 Room Air 150/94 (112) 10/23/16 04:41 37.1 66 18 128/69 (88) 98 Room Air 10/23/16 04:00 Room Air 10/23/16 00:18 36.5 60 18 168/80 (109) 95 Room Air 10/23/16 00:00 Room Air 10/22/16 20:00 Room Air 10/22/16 19:55 36.6 73 18 165/108 (127) 95 159/102 (121) Lab Results: Results Past 24 Hours Test 10/23/16 07:04 Range/Units White Blood Count 8.70 4.8-10.8 K/uL Red Blood Count 4.63 4.2-5.4 M/uL Hemoglobin 14.5 12.0-16.0 g/dL Hematocrit 44.7 37-47 % Mean Corpuscular Volume 96.5 80-100 fL Mean Corpuscular Hemoglobin 31.3 25-34 pg Mean Corpuscular Hemoglobin Concent 32.4 32-36 g/dl Platelet Count 254 130-400 K/uL Mean Platelet Volume 9.6 7.4-10.4 fL Neutrophils (%) (Auto) 56.6 % Lymphocytes (%) (Auto) 32.4 % Monocytes (%) (Auto) 7.5 % Eosinophils (%) (Auto) 3.2 % Basophils (%) (Auto) 0.2 % Neutrophils # (Auto) 4.92 1.4-6.5 K/uL Lymphocytes # (Auto) 2.82 1.2-3.4 K/uL Monocytes # (Auto) 0.65 0.11-0.59 K/uL Eosinophils # (Auto) 0.28 0-0.5 K/uL Basophils # (Auto) 0.02 0-0.2 K/uL RDW Standard Deviation 46.1 36.4-46.3 fL RDW Coefficient of Variation 13.1 11.5-14.5 % Immature Granulocyte % (Auto) 0.1 % Immature Granulocyte # (Auto) 0.01 0.00-0.02 K/uL Sodium Level 140 136-145 mmol/L Potassium Level 4.6 3.5-5.1 mmol/L Chloride Level 106 98-107 mmol/L Carbon Dioxide Level 31 21-32 mmol/L Anion Gap 3.0 3-11 mmol/L Blood Urea Nitrogen 20 7-18 mg/dl Creatinine 0.90 0.60-1.20 mg/dl Est Creatinine Clear Calc Drug Dose 74.5 ml/min Estimated GFR () 78.9 Estimated GFR (Non- 68.0 BUN/Creatinine Ratio 22.3 10-20 Random Glucose 103 70-99 mg/dl Calcium Level 9.1 8.5-10.1 mg/dl
--- NOTE | 2016-10-23 19:02 | Discharge Summary ---
Discharge Summary Date of Service Oct 23, 2016. Discharge Summary Admission Date: Oct 21, 2016 at 11:56 Discharge Date: Oct 23, 2016 Discharge Disposition: Home with services Principal Diagnosis: CVA Secondary Diagnoses/Problems: 1) History of stroke in 2002 (2) Dyslipidemia Procedures: CTA NECK: 1. The carotid arteries intervertebral arteries are widely patent. 2. There is a beaded appearance of the mid to distal left internal carotid artery typical in appearance for fibromuscular dysplasia. CTA HEAD: 1. Mild scattered atherosclerotic change and multifocal narrowing of all structures of the anterior middle and posterior cerebral circulation. 2. No evidence for a significant or severe stenotic process. HEAD MRA: 1. No evidence of aneurysm 2. Diminished vascularity corresponding to an area of prior infarction in the distribution of the left middle cerebral artery BRAIN MRI: 1. A few small acute infarcts within the left cerebellar hemisphere. 2. Old left MCA territory infarcts. ECHO:The left ventricle is normal in size. * Ejection Fraction = 60-65%. * The right ventricular systolic function is normal. * The left atrial size is normal. * Right atrial size is normal. * No significant valvular pathology Consultations: NEUROLOGY Medication Reconciliation New Medications: Atorvastatin (Atorvastatin Calcium) 40 Mg Tab 40 MG PO QAM, #30 TAB 2 Refills Continued Medications: Aspirin (Aspirin) 325 Mg Tab 325 MG PO DAILY Clopidogrel (Plavix) 75 Mg Tab 75 MG PO DAILY Desvenlafaxine Succinate Er (Pristiq) 50 Mg Tab 50 MG PO DAILY Doxycycline Hyclate (Doxycycline Hyclate) 100 Mg Cap 100 MG PO BID X 21 DAYS (STARTED 10/12/16) Discontinued Medications: Simvastatin (Zocor) 10 Mg Tab 10 MG PO QPM Admission Information HPI (per Admitting provider): Patient is a 61 yo female who presented to the ED after experiencing symptoms of slurred speech, unsteady gait, and uncontrollable shaking of her left side extremities this AM. She states she woke up this morning around 6AM, and upon walking to the bathroom she felt unsteady as if she was "drugged" and when she sat to urinate, she began to have involuntary shaking of her left side. She called for her who helped her finish up and walk back to the bedroom. The shaking had stopped spontaneously. Her noticed her speech is slurred and was not previously that way. She denies any other symptoms until she came to the ER, where she now has a headache and feels some dizziness with walking. She states she has been in good health until today. Last week she had a rash on her thigh and was seen at urgent care where they thought it could be lyme disease and have been treating her with doxycycline since 10/12, no lab testing was done and the patient never saw a tick. Patient reports taking her medications without missing doses. She denies any other complaints at this time. She has a prior hx of stroke in 2002 when she was on OCP and had residual fine motor difficulty in her right side extremities and a slight right facial droop. Physical Exam (per Admitting): General Appearance: WD/WN, no apparent distress Head: normocephalic, atraumatic Eyes: PERRL, EOMI, sclerae normal, + pertinent finding (slight lateral nystagmus with extreme left side glance ) ENT: hearing grossly normal Neck: supple, no JVD, no carotid bruits, trachea midline Respiratory/Chest: chest non-tender, lungs clear, normal breath sounds, no respiratory distress Cardiovascular: regular rate, rhythm, no gallop, no JVD, no murmur Abdomen/GI: normal bowel sounds, non tender, soft, no organomegaly Back: no CVA tenderness, normal range of motion Extremities/Musculoskelatal: normal capillary refill, normal range of motion , + pedal edema Neurologic/Psych: box annealer II-XII nml as tested, no motor/sensory deficits, alert , oriented x 3 Skin: normal color, warm/dry, no rash Hospital Course POSSIBLE CVA/TIA: New onset slurred speech and gait ataxia initial imaging: CT head: several old infarcts noted, and mention of frontal atrophy MRI head: A few small acute infarcts within the left cerebellar hemisphere Echo unremarkable except for mild dysarthria symptoms improved changed Zocor 10mg to Lipitor 40mg daily plan to change aspirin and Plavix to Aggrenox if insurance agrees f/u hypercoagulable workup with neurology plan for zio monitor as out patient by neurology once hypercoagulable workup available appreciate neurology inputs. DYSLIPIDEMIA: statin as above LYME DISEASE: unconfirmed, presence of erythema migrans previously started on doxycycline 10/12 which is to be continued Discharged home with out patient therapy Total time spent on discharge = 40MINUTES This includes examination of the patient, discharge planning, medication reconciliation, and communication with other providers. Discharge Instructions Discharge Instructions Date of Service Oct 23, 2016. Admission Reason for Admission: Stroke Discharge Discharge Diagnosis / Problem: CVA Discharge Goals Goal(s): Decrease discomfort, Improve function Activity Recommendations Activity Limitations: resume your previous activity . Instructions / Follow-Up Instructions / Follow-Up FOLLOWUP WITH FAMILY DOCTOR Sumeet Brown ON October AT 1:20PM. FOLLOWUP WITH NEUROLOGY IN 3-4 WEEKS( [address] [place] [address] ). HOLTER PER . CHNAGED SIMVASTATIN 10MG DAILY TO LIPITOR 40MG PO DAILY. FOLLOW LIPID PROFILE AND LIVER FUNCTION TEST IN ONE MONTH WITH FAMILY DOCTOR. OUT PATIENT PHYSICAL THERAPY AND SPEECH THERAPY. TO CHECK WITH INSURANCE IF IT COVERS AGGRENOX 200/25MG CAPSULE TWICE DAILY. IF IT COVERS THEN CHANGE ASPIRIN AND PLAVIX TO AGGRENOX. IF INSURANCE DOES NOT COVER AGGRENOX THEN CONTINUE ASPIRIN AND PLAVIX BEFORE. Risk Factors for Stroke: You can reduce your chances of stroke by working with your medical provider to adopt a healthy lifestyle. Some specific ways to lower your chance of stroke are: * If you are a smoker, now is the time to stop smoking cigarettes * If you are diabetic, improve the control of your blood sugars * Avoid excessive amounts of alcohol * Control high blood pressure * Lose weight if you are overweight * Be sure to lead an active lifestyle * Eat a healthy diet low in salt, cholesterol and fat You should know about other risk factors for stroke that you are unable to control. These include: * Age 55 years or older * Male gender * Certain racial groups: , or / * Family History of Stroke, Mini stroke or Heart Attack * Sickle Cell Disease Follow Up: It is important for you to keep your follow up appointments with your medical provider. Current Hospital Diet Patient's current hospital diet: AHA Diet (Heart Healthy) Discharge Diet Recommended Diet: AHA Diet (Heart Healthy) Pending Studies Studies pending at discharge: yes List of pending studies: HYPERCOAGUABLE WORK UP Laboratory Results Hemoglobin A1c Test 10/21/16 07:55 Range/Units Estimated Average Glucose 111 mg/dl Hemoglobin A1c 5.5 4.5-5.6 % Lipid Panel Test 10/22/16 06:26 Range/Units Triglycerides Level 169 H 0-150 mg/dl Cholesterol Level 157 0-200 mg/dl HDL Cholesterol 36 mg/dl Cholesterol/HDL Ratio 4.4 LDL Cholesterol, Calculated 87 mg/dl Medical Emergencies . Who to Call and When: Medical Emergencies: Call 911 immediately if you experience any of the following warning signs and symptoms of Stroke: * Sudden numbness or weakness of the face, arm or leg, especially on one side of the body * Sudden confusion, trouble speaking or understanding * Sudden trouble seeing in one or both eyes * Sudden trouble walking, dizziness, loss of balance or coordination * Sudden severe headache with no cause Do not delay calling 911 if you experience any warning signs or symptoms of a stroke. Delay in seeking medical attention may affect what treatments can be given to you. . Non-Emergent Contact Non-Emergency issues call your: Primary Care Provider . . "Provider Documentation" section prepared by Kleber Joshi. . Stroke Core Measures Reason no t-PA for Stroke: Treatment not indicated Reason no antithrom by day 2: Treatment provided - N/A Reason no antithrom at D/C: Treatment provided - N/A Reason no statin at D/C: Treatment provided - N/A Reason no anticoag w/a fib: Treatment not indicated VTE Core Measure Inpt VTE Proph given/why not?: Enoxaparin (Lovenox)SQ
--- NOTE | 2016-10-24 08:56 | DIAGNOSTIC IMAGING REPORT ---
NECK MRA HISTORY: Left cerebellar infarcts. Stroke TECHNIQUE: [id number] and gadolinium-enhanced MRA of the neck was performed both before and after the intravenous administration of contrast. All measurements were calculated based on NASCET criteria. COMPARISON STUDY: Neck CTA 10/21/2016. FINDINGS: The aortic arch and proximal great vessels are widely patent. There is no significant stenosis, occlusion, or dissection identified within the bilateral common carotid, internal carotid, or vertebral arteries. There is again noted a slightly beaded appearance to the mid left internal carotid artery and tortuosity of the bilateral internal carotid arteries. IMPRESSION: No significant stenosis, occlusion, or dissection identified within the carotid or vertebral arteries. There is again noted a slightly beaded appearance to the mid left internal carotid artery suggestive of fibromuscular dysplasia. Electronically signed by: Srini Mccracken M.D. 10/21/2016 6:05 PM Dictated Date/Time: 10/21/2016 6:01 PM
--- NOTE | 2016-10-26 15:30 | Pharmacy Progress Note ---
Pharmacist Post D/C Phone Note Date of phone call: Oct 26, 2016. Individual with whom pharmacist spoke to: Patient The following questions were reviewed during the phone call with responses listed below each: Can you tell me the medications that you are currently taking as well as when and how you take each medication? - Pt takes very few medications. She will continue her doxy 100mg po BID x 21 days total for lyme disease. She also continues Prestiq. Her ASA is 325mg daily (preferred dose per neurology), clopidogrel 75mg po daily, atorvastatin 40mg po daily. She has discontinued simvastatin therapy and has thrown away this medication. When have you missed any doses of your medications? - Pt denies missing any doses What side effects are you having from your medications? - Patient aware she may have increased bleeding/bruising. She agrees to discuss SE's with her physician if problems arise. What questions do you have about your medications? - Pt denies any questions. What problems are you having obtaining your medications? - Pt denies any problems at this time. Her neurologist has suggested transition to Aggrenox BID (d/c Plavix/ASA). Pt will check if covered with her insurance and f/u with neurology at next appt (end Nov 2016) if interested. When is your next appointment with your primary care doctor? - Has seen PCP since d/c [facility] and continues neurology f/u. As per the Pharmacist Discharge Counseling for Stroke Patients Protocol, this phone call has been completed within 72 hours of discharge. Thank you for allowing us to be involved in the care of this patient. OR The patient and/or patient union representative(s) were unable to be reached for a follow-up phone call within the 72 hour time frame. Discharge counseling pharmacist contact information has already been provided to the patient should questions arise. Thank you for allowing us to be involved in the care of this patient.
[2016-10-27 10:28] LABS: ANTITHROMBINIII ACTIVITY** 105 % activity (80-120); B2 GLYCOPROTEIN IGA <9 SAU (<=20); B2 GLYCOPROTEIN IGG <9 SGU (<=20); B2 GLYCOPROTEIN IGM 12 SMU (<=20); LUPUS ANTICOAGULANT** TC36573X Negative (Negative); PROTEIN C ACTIVITY** TC 1777X 128 % (70-180); PROTEIN S ACT(FUNCT)**1779X 74 % (60-140)
== END 2016-10-23 16:10 | disposition home or self-care (01) | DRG 65 ==
LOC: C.EDB 07:31 → C.2E 11:56 → ENRESERV 12:02
PROVIDERS: ADMIT Internal Medicine; ATTEND Internal Medicine
DX: I63.9 Cerebral infarction, unspecified (principal); A69.20 Lyme disease, unspecified; E78.5 Hyperlipidemia, unspecified; R47.81 Slurred speech; R27.0 Ataxia, unspecified; R25.8 Other abnormal involuntary movements; Z79.82 Long term (current) use of aspirin; Z79.02 Long term (current) use of antithrombotics/antiplatelets; Z79.899 Other long term (current) drug therapy; Z86.73 Personal history of transient ischemic attack (TIA), and cerebral infarction without residual deficits

== ENCOUNTER 2017-06-26 23:01 | Emergency (ER) | payer OTHER ==
[~2017-06-26] VITALS: Ht 167.6 cm; Wt 99.7 kg
[~2017-06-26 23:01] MED LIST: ASPECOTC PO; CLOP1TAB15 PO; DESV50TA PO; DXY/100 PO; LPT40 PO
[2017-06-26 23:13] VITALS: TEMP 37.3; Ht 167.6 cm; Wt 99.7 kg
[2017-06-26] MEDS ORDERED: DESV100T PO (23:49)
[2017-06-26] MEDS ORDERED: MULTTAB66 PO (23:49)
[2017-06-26] MEDS ORDERED: ATOR-24 PO (23:49)
--- NOTE | 2017-06-26 23:58 | EMERGENCY ROOM VISIT NOTE ---
History Report prepared by Romain: Chaz Welsh Under the Supervision of: Dr. Esdras Lovelace M.D. First contact with patient: 23:50 Chief Complaint: EAR PAIN Stated Complaint: BLEEDING FROM LEFT EAR History of Present Illness The patient is a 62 year old female who presents to the Emergency Room with complaints of left ear pressure rated as 8/10 and bleeding that began 1 hour ago. She reports that she has a sore throat and that it is difficult to swallow. She has had minimal improvement with DayQuil and NyQuil. She reports sick contacts with her grandchildren; she had a negative strep test earlier today. She denies rhinorrhea, SOB, cough, chest pain, and head ache. She denies a history of diabetes. Source of History: patient Onset: 1 hour ago Position: ear (left) Symptom Intensity: pain rated as 8/10 Quality: pressure Modifying Factors (Relieving): other (minimal improvement with DayQuil and NyQuil) Associated Symptoms: + sorethroat, No headache, No cough, No chest pain, No SOB Review of Systems See HPI for pertinent positives & negatives. A total of 6 systems reviewed and were otherwise negative. Past Medical & Surgical Medical Problems: (1) History of stroke Family History Cancer Social History Smoking Status: Never Smoker Drug Use: none Marital Status: Housing Status: lives with significant other Current/Historical Medications Scheduled Amoxicillin & Pot Clavulanate (Augmentin 875-125 mg), 875 MG PO BID Aspirin (Aspirin), 325 MG PO DAILY Atorvastatin (Lipitor), 40 MG PO DAILY Clopidogrel (Plavix), 75 MG PO DAILY Desvenlafaxine Succinate Er (Pristiq), 100 MG PO DAILY Multiple Vitamins W/ Minerals (I-Yumiko), 1 TAB PO DAILY Allergies Coded Allergies: No Known Allergies (Unverified , 10/21/16) Physical Exam Vital Signs Date Time Temp Pulse Resp B/P (MAP) Pulse Ox O2 Delivery O2 Flow Rate FiO2 06/27/17 00:06 73 18 156/86 96 Room Air 06/26/17 23:13 37.3 81 18 165/100 95 Room Air Physical Exam GENERAL: Patient is uncomfortable appearing and in mild distress. EYES: No scleral icterus, unremarkable pupils. ENT: Erythematous posterior pharynx. Small ruptured left TM anterior with effusion behind ear and serosanguineous fluid in canal. No mastoid tenderness or significant pain with ROM of ear. Mucous membranes moist, no nasal congestion. NECK: No masses appreciated, no meningismus, trachea is midline. RESPIRATORY: No dyspnea. Clear to auscultation and equal bilaterally. No wheeze , no rhonchi. CARDIOVASCULAR: Regular rate and rhythm. No murmurs, rubs, gallops appreciated. EXTREMITIES: Normal motion all extremities, no cyanosis, no edema. NEUROLOGIC: Alert and oriented, no acute motor or sensory deficits, no focal weakness, cranial nerves grossly intact. SKIN: No rash, no jaundice, no diaphoresis. Medical Decision & Procedures Medications Administered Medications (Trade) Dose Ordered Sig/Jamie Route Start Time Stop Time Status Last Admin Dose Admin Amoxicillin/ Clavulanate Potassium (Augmentin Tab) 875 mg ONE ONCE PO 06/27/17 00:15 06/27/17 00:16 DC 06/27/17 00:11 875 MG ED Course 2350: The patient was evaluated in room A9B. A complete history and physical exam was performed. 0030: Reevaluated the patient. Discussed results and discharge instructions: She verbalized understanding and agreement. The patient is ready for discharge. Medical Decision 62 yr old female arrives for blood from left ear. Slow sero sanguinous bleed from left TM which on exam appears to have anterior rupture with some fluid behind TM. Suspect this is with her cold and thus rupture though could be blister on TM that is bleeding? Regardless it appears she does have OM that has ruptures thus will start on Augmentin. She is comfortable with this. Offered stronger pain meds though she declines. She is on asa/plavic thus increased bleeding. Stable and looks well. Reviewed symptoms requiring RTED. Medication Reconcilliation Current Medication List: was personally reviewed by me Blood Pressure Screening Patient's blood pressure: Elevated blood pressure Blood pressure disposition: Elevated BP felt to be situational Impression Primary Impression: Acute otitis media, left Additional Impression: Tympanic membrane perforation Scribe Attestation The scribe's documentation has been prepared under my direction and personally reviewed by me in its entirety. I confirm that the note above accurately reflects all work, treatment, procedures, and medical decision making performed by me. Departure Information Dispostion Home / Self-Care Prescriptions Amoxicillin & Pot Clavulanate (Augmentin 875-125 mg) 1 Tab Tab 875 MG PO BID for 7 Days, #14 TAB Prov: Esdras Lovelace M.D. 06/27/17 Referrals Sumeet Echevarria M.D. (PCP) Patient Instructions ED Rupture Eardrum Infec, [facility] Problem Qualifiers
[2017-06-27] MEDS ORDERED: AMOX875T PO (00:02)
[2017-06-27 00:06] VITALS: BP 156/86; PULSE 73; O2SAT 96
[2017-06-27] MEDS ORDERED: AMOXICILLIN/CLAVULANATE TAB 875 MG TAB PO ONE (00:15)
== END 2017-06-27 00:14 | disposition home or self-care (01) ==
LOC: C.EDB 23:03 → C.EDA 06-27 00:14
DX: H66.012 Acute suppurative otitis media with spontaneous rupture of ear drum, left ear (principal); R03.0 Elevated blood-pressure reading, without diagnosis of hypertension; Z86.73 Personal history of transient ischemic attack (TIA), and cerebral infarction without residual deficits; Z79.82 Long term (current) use of aspirin; Z79.899 Other long term (current) drug therapy